=== PATIENT | female | born 1960 | race Caucasian/White ===

== ENCOUNTER 2022-12-31 10:19 | Outpatient (CLI) | payer BC, SELFPAY ==
[2022-12-31 14:57] LABS: Abs Immature Grans 0.26 10^3/uL (0.0-0.06); Absolute Basophil Count 0.04 10^3/uL (0.0-0.2); Absolute Eosinophil Count 0.01 10^3/uL (0.0-0.7); Absolute Lymphocyte Count 0.73 10^3/uL (1.2-3.4); Absolute Monocyte Count 0.51 10^3/uL (0.1-0.8); Absolute Neutrophil Count 9.55 10^3/uL (1.2-6.7); Basophils % 0.4; Eosinophils % 0.1; HCT 44.7 % (36.0-46.0); HGB 15.6 g/dL (11.2-15.7); Immature Grans % 2.3; Lymphocytes % 6.6; MCHC 34.9 % (32.0-36.0); MCV 92 fL (80-95); Monocytes % 4.6; Platelet Count 150 10^3/uL (130-400); RBC 4.88 10^6/uL (3.93-5.22); RDW 14.5 % (11.7-14.6); RDW-SD 48.4 fL; WBC 11.11 10^3/uL (4.4-10.8)
[2022-12-31 15:40] LABS: ALT 40 U/L (14-59); AST 15 U/L (15-37); Albumin 3.5 g/dL (3.4-5.0); Alkaline Phosphatase 56 U/L (46-116); Anion Gap 11.1 mmol/L (3-11); BUN 38 mg/dL (7-18); Bilirubin, Total 0.7 mg/dL (0.2-1.0); CO2 23.9 mmol/L (21.0-32.0); CREATININE 1.3 mg/dL (0.55-1.02); Calcium 9.3 mg/dL (8.5-10.1); Chloride 102 mmol/L (98-107); Estimated GFR 46.21 (mL/min/1.73m2); Glucose 151 mg/dL (74-106); Potassium 4.1 mmol/L (3.5-5.1); Sodium 137 mmol/L (136-145); Total Protein 6.5 g/dL (6.4-8.2); Vitamin B12 938 pg/mL (193-986)
[2022-12-31 15:42] LABS: Folate > 20.0 ng/mL (8.6-20.0)
[2022-12-31 15:46] LABS: Iron 109 ug/dL (50-170); Total Iron Binding Capacity 300 ug/dL (250-450); Transferrin Sat 36 % (15-50)
== END 2022-12-31 10:20 | disposition home or self-care (01) ==
PROVIDERS: PCP Nurse Practitioner; Visit Provider Internal Medicine
DX: C71.9 Malignant neoplasm of brain, unspecified (principal)
CPT/HCPCS: 36415; 80053; 82607; 82746; 83540; 83550; 85025

== ENCOUNTER 2023-01-07 15:39 | Outpatient (CLI) | payer BC, SELFPAY ==
[2023-01-07 13:31] LABS: Abs Immature Grans 0.11 10^3/uL (0.0-0.06); Absolute Basophil Count 0.02 10^3/uL (0.0-0.2); Absolute Lymphocyte Count 0.44 10^3/uL (1.2-3.4); Absolute Monocyte Count 0.41 10^3/uL (0.1-0.8); Absolute Neutrophil Count 4.95 10^3/uL (1.2-6.7); Basophils % 0.3; HCT 38.9 % (36.0-46.0); HGB 13.8 g/dL (11.2-15.7); Immature Grans % 1.9; Lymphocytes % 7.4; MCH 31.9 pg (27.0-33.0); MCHC 35.5 % (32.0-36.0); MCV 90 fL (80-95); MPV 8.9 fL (8.0-11.0); Monocytes % 6.9; Neutrophils % 83.5; Platelet Count 199 10^3/uL (130-400); RBC 4.33 10^6/uL (3.93-5.22); RDW 14.3 % (11.7-14.6); RDW-SD 45.7 fL; WBC 5.93 10^3/uL (4.4-10.8)
[2023-01-07 13:54] LABS: Iron 72 ug/dL (50-170); Total Iron Binding Capacity 229 ug/dL (250-450); Transferrin Sat 31 % (15-50)
[2023-01-07 14:12] LABS: ALT 32 U/L (14-59); AST 16 U/L (15-37); Albumin 3.2 g/dL (3.4-5.0); Alkaline Phosphatase 61 U/L (46-116); Anion Gap 11.8 mmol/L (3-11); BUN 36 mg/dL (7-18); Bilirubin, Total 0.8 mg/dL (0.2-1.0); CO2 25.2 mmol/L (21.0-32.0); CREATININE 1.4 mg/dL (0.55-1.02); Calcium 8.9 mg/dL (8.5-10.1); Chloride 102 mmol/L (98-107); Estimated GFR 42.27 (mL/min/1.73m2); Folate > 20.0 ng/mL (8.6-20.0); Glucose 130 mg/dL (74-106); Potassium 3.9 mmol/L (3.5-5.1); Sodium 139 mmol/L (136-145); Total Protein 6.6 g/dL (6.4-8.2); Vitamin B12 854 pg/mL (193-986)
== END 2023-01-07 15:40 | disposition home or self-care (01) ==
LOC: LBO 15:48
PROVIDERS: PCP Nurse Practitioner; Visit Provider Internal Medicine
DX: C71.9 Malignant neoplasm of brain, unspecified (principal); R79.89 Other specified abnormal findings of blood chemistry
CPT/HCPCS: 36415; 80053; 82607; 82746; 83540; 83550; 85025

== ENCOUNTER 2023-01-08 10:47 | Outpatient (CLI) | payer BC, SELFPAY ==
--- NOTE | 2023-01-08 | DI.CT_ITS ---
Exam(s) CT CHEST PE CTA EXAM: CT CHEST PE CTA CLINICAL HISTORY: TACHYCARDIA, R00.0; GLIOBLASTOMA, C71.9, ? PULMONARY EMBOLISM. TECHNIQUE: Imaging Protocol: Axial CT angiography was performed with multi-slice acquisition and mu lti-planar and/or 3D reconstructions. CONTRAST MATERIAL: Intravenous: Omnipaque 350 contrast volume:100 mL COMPARISON: No exams were available for comparison FINDINGS: Tracheobronchial tree: Patent where visualized. Pulmonary parenchyma: No consolidation or dominant measurable mass. There is a 7 mm nodule in the med ial aspect of the right upper lobe. There is atelectasis in the lung bases. No focal consolidating infiltrates are seen. Pulmonary Arteries: No evidence of filling defect to suggest pulmonary emboli. Mediastinum and Meena: No dominant adenopathy or fluid collection. The esophagus is unremarkable. Th ere is a small hiatal hernia. Visualized thyroid gland: Unremarkable. Pleura: No effusion or pneumothorax. Heart: The heart is not dilated. No coronary artery calcifications are seen. No pericardial effusion. No evidence of right heart strain. Aorta: Thoracic aorta non-dilated. No evidence of dissection. Mild atherosclerosis. Upper abdomen: Polycystic kidneys. Soft tissues: Unremarkable. Bones: Within normal limits for the patient's age. IMPRESSION: 1. No evidence of pulmonary embolism, thoracic aortic dissection or aneurysm. 2. 7 mm right upper lobe pulmonary nodule. For low risk patient, follow-up examination in 6-12 month s is recommended. For high risk patients (history of smoking or other risk factors), initial examina tion in 6-12 months and again in 18-24 months is recommended. (Tania et al, 2017). Unexpected findings RADIATION DOSE DELIVERED: 441.45mGy.cm Total DLP DATA REPOSITORY: All CT scans at this facility are submitted to the National Radiology Data Registry (NRDR) Dose Index Registry (DIR) with the [employer] ([employer]). RADIATION OPTIMIZATION: All CT scans at this facility use at least one of these dose optimization te chniques: automated exposure control; mA and/or kV adjustment per patient size (includes targeted exa ms where dose is matched to clinical indication); or iterative reconstruction.
[2023-01-08] MEDS: Normal Saline - Diluent 50 ML VIAL IJ (12:22)
[2023-01-08] MEDS: Omnipaque 350 MG/ML 500 ML BTL-Imaging package 100 ML IJ (12:22)
[2023-01-08] MEDS: Normal Saline Flush 10 ML SYR IVP (12:23)
== END 2023-01-08 11:07 ==
LOC: DI 10:47
PROVIDERS: PCP Nurse Practitioner; Visit Provider Internal Medicine
DX: R91.1 Solitary pulmonary nodule (principal); C71.9 Malignant neoplasm of brain, unspecified; R00.0 Tachycardia, unspecified
CPT/HCPCS: 71275

== ENCOUNTER 2023-01-14 11:09 | Outpatient (CLI) | payer BC, SELFPAY ==
[2023-01-14 10:46] LABS: Abs Immature Grans 0.15 10^3/uL (0.0-0.06); Absolute Basophil Count 0.03 10^3/uL (0.0-0.2); Absolute Eosinophil Count 0.01 10^3/uL (0.0-0.7); Absolute Lymphocyte Count 0.26 10^3/uL (1.2-3.4); Absolute Neutrophil Count 5.93 10^3/uL (1.2-6.7); Basophils % 0.4; Eosinophils % 0.1; HCT 36.2 % (36.0-46.0); HGB 12.5 g/dL (11.2-15.7); Immature Grans % 2.2; Lymphocytes % 3.8; MCH 31.5 pg (27.0-33.0); MCHC 34.5 % (32.0-36.0); MCV 91 fL (80-95); MPV 8.6 fL (8.0-11.0); Monocytes % 7.3; Neutrophils % 86.2; Platelet Count 154 10^3/uL (130-400); RBC 3.97 10^6/uL (3.93-5.22); RDW 15.6 % (11.7-14.6); RDW-SD 50.3 fL; WBC 6.88 10^3/uL (4.4-10.8)
[2023-01-14 11:19] LABS: ALT 25 U/L (14-59); AST 18 U/L (15-37); Alkaline Phosphatase 62 U/L (46-116); Anion Gap 11.2 mmol/L (3-11); BUN 37 mg/dL (7-18); Bilirubin, Total 0.7 mg/dL (0.2-1.0); CO2 24.8 mmol/L (21.0-32.0); CREATININE 1.5 mg/dL (0.55-1.02); Chloride 102 mmol/L (98-107); Estimated GFR 38.91 (mL/min/1.73m2); Glucose 114 mg/dL (74-106); Potassium 3.9 mmol/L (3.5-5.1); Sodium 138 mmol/L (136-145); Total Protein 6.6 g/dL (6.4-8.2)
== END 2023-01-14 11:10 | disposition home or self-care (01) ==
LOC: LBO 11:10
PROVIDERS: PCP Nurse Practitioner; Visit Provider Internal Medicine
DX: C71.9 Malignant neoplasm of brain, unspecified (principal)
CPT/HCPCS: 36415; 80053; 85025